=== PATIENT | female | born 1980 | race Caucasian/White ===

== ENCOUNTER 2020-08-16 07:55 | Outpatient (CLI) | payer BC, SELFPAY ==
--- NOTE | ~2020-08-16 | MM_ITS ---
EXAMINATION: MM screening triny BI w kash HISTORY: Screening TECHNIQUE: Craniocaudal and mediolateral oblique 3-D tomosynthesis images were obtained and synthetic 2-D images were generated. CAD analysis was submitted and interpreted. COMPARISON: No prior mammogram is available for comparison at this institution. BREAST PARENCHYMAL COMPOSITION: Breast composed of scattered areas of fibroglandular density FINDINGS: There are bilateral breast asymmetries centered in the upper outer quadrant of both breasts . There are no suspicious calcifications. IMPRESSION: 1. Bilateral breast asymmetries. 2. Additional mammographic views and possible breast ultrasound are recommended. BI-RADS Category 0: Incomplete: Needs additional imaging evaluation. Reviewed, dictated and finalized at location A. IMPRESSION: 1. Bilateral breast asymmetries. 2. Additional mammographic views and possible breast ultrasound are recommended . BI-RADS Category 0: Incomplete: Needs additional imaging evaluation.
== END 2020-08-16 07:56 | disposition home or self-care (01) ==
LOC: ANHIMG 08:00
PROVIDERS: PCP Physician Assistant; Visit Provider Obstetrics & Gynecology
DX: Z12.31 Encounter for screening mammogram for malignant neoplasm of breast (principal)
CPT/HCPCS: 77063; 77067

== ENCOUNTER 2020-08-16 08:47 | Outpatient (CLI) | payer BC, SELFPAY ==
--- NOTE | ~2020-08-16 | US_ITS ---
EXAMINATION: US pelvic complete w TV DATE: 08/16/2020 09:46 INDICATION: Irregular menstruation TECHNIQUE: Multiple transabdominal and endovaginal sonographic images of the pelvis were obtained. COMPARISON: None. FINDINGS: The uterus measures 9.3 x 4.8 x 4.8 cm. The endometrial complex measures 13 mm. Nabothian c ysts are noted in the cervix. The right ovary measures 2.3 x 2.5 x 2.4 cm. The left ovary measures 2. 2 x 2.2 x 1.8 cm. There is normal vascular flow in the ovaries. There is no free fluid in the pelvis. IMPRESSION: 1. No sonographic correlate for the patient's symptoms. Reviewed, dictated and finalized at location A.
== END 2020-08-16 08:48 ==
PROVIDERS: Visit Provider Obstetrics & Gynecology
DX: N92.6 Irregular menstruation, unspecified (principal)
CPT/HCPCS: 76830; 76856

== ENCOUNTER 2020-09-06 13:29 | Outpatient (CLI) | payer BC, SELFPAY ==
--- NOTE | ~2020-09-06 | MMUS_ITS ---
EXAMINATION: MM diagnostic mammo BI, US breast BI limited HISTORY: Follow-up breast asymmetries TECHNIQUE: Additional 3-D tomosynthesis images of the breasts were performed and synthetic 2-D images were generated. CAD analysis was submitted and interpreted. High resolution bilateral breast ultraso und was performed. COMPARISON: 08/16/2020 BREAST PARENCHYMAL COMPOSITION: Breast composed of scattered areas of fibroglandular density. FINDINGS: MAMMOGRAPHIC FINDINGS: There is a persistent 1.5 cm focal asymmetry laterally in the right breast on CC view, middle third. This is not well visualized on the MLO or mediolateral view. There are no discrete masses or architec tural distortion in the left breast. There are no suspicious calcifications. ULTRASOUND: Right breast ultrasound, limited: At 12:00, 4 cm from the nipple, there is an irregular shaped hypoec hoic mass with antiparallel configuration measuring 13 x 11 x 9 mm. No significant posterior features or internal vascularity. At 11:00, 6 cm from the nipple, there is an oval hypoechoic mass with paral lel orientation measuring 9 x 5 x 8 mm without posterior features or internal vascularity. Left breast ultrasound: At 3:00, 4 cm from the nipple there is a 3 mm cyst. IMPRESSION: 1. Irregular hypoechoic right breast mass at 12:00, 4 cm from the nipple measuring 13 mm. Ultrasound- guided biopsy recommended. 2. Hypoechoic mass at 11:00 measuring 9 mm, likely benign. Six-month follow-up ultrasound recommended . BI-RADS category 4, suspicious findings. Reviewed, dictated and finalized at location A. MANAGER IMPRESSION: 1. Irregular hypoechoic right breast mass at 12:00, 4 cm from the nipple measur ing 13 mm. Ultrasound-guided biopsy recommended. 2. Hypoechoic mass at 11:00 measuring 9 mm, likely benign. Six-month follow-up ultrasound recommended. BI-RADS category 4, suspicious findings.
== END 2020-09-06 13:30 | disposition home or self-care (01) ==
LOC: ANHIMG 13:32
PROVIDERS: PCP Physician Assistant; Visit Provider Obstetrics & Gynecology
DX: R92.8 Other abnormal and inconclusive findings on diagnostic imaging of breast (principal)
CPT/HCPCS: 76642; 77066

== ENCOUNTER 2020-09-25 01:12 | Outpatient (CLI) | payer BC, SELFPAY ==
[2020-09-25 19:09] LABS: SARS-CoV-2 RNA PCR Negative
== END 2020-09-25 01:13 | disposition home or self-care (01) ==
LOC: ANHCOVIDDT 01:13
PROVIDERS: PCP Physician Assistant; Visit Provider Obstetrics & Gynecology
DX: Z20.828 Contact with and (suspected) exposure to other viral communicable diseases (principal)
CPT/HCPCS: 87635; C9803; U0003